=== PATIENT | female | born 1995 | race Asian ===

== ENCOUNTER → 2018-12-20 | Outpatient (REF) | payer OTHER ==
[2018-12-20 20:17] LABS: BASO % 0.4 % (0.0-1.0); EOS % 0.1 % (0.0-3.0); HEMOGLOBIN 14.3 g/dl (12.0-15.5); LYMPH # 1.1 10^3/uL (1.5-5.0); LYMPH % 12.6 % (24.0-44.0); MEAN CORPUSCULAR HEMOGLOBIN 31.2 pg (27.0-33.0); MEAN CORPUSCULAR VOLUME 91.5 fl (80.0-96.0); MONO # 0.4 10^3/uL (0.0-0.8); MONO % 4.4 % (0.0-5.0); NEUTROPHILS # 6.9 10^3/uL (1.5-8.5); NEUTROPHILS % 82.3 % (36.0-66.0); PLATELET COUNT, AUTOMATED 352 10^3/uL (150-450); RED BLOOD COUNT 4.59 10^6/uL (4.00-5.40); WHITE BLOOD COUNT 8.3 10^3/uL (4.0-10.0)
[2018-12-20 20:33] LABS: ALBUMIN 4.2 GM/DL (3.2-5.2); ALT/SGPT 17 U/L (12-78); BILIRUBIN,TOTAL 0.6 MG/DL (0.2-1.0); BLOOD UREA NITROGEN 12 MG/DL (7-18); CALCIUM LEVEL 9.4 MG/DL (8.5-10.1); CARBON DIOXIDE LEVEL 19 MEQ/L (21-32); CHLORIDE LEVEL 108 MEQ/L (98-107); CREATININE FOR GFR 0.97 MG/DL (0.55-1.30); FREE T4 0.99 NG/DL (0.76-1.46); GLOMERULAR FILTRATION RATE > 60.0 (>60); GLUCOSE, FASTING 95 MG/DL (70-100); SODIUM LEVEL 139 MEQ/L (136-145); TOTAL PROTEIN 7.9 GM/DL (6.4-8.2)
== END ==
LOC: M SFHCLERA 17:55
PROVIDERS: ATTEND Physician Assistant
DX: R00.0 Tachycardia, unspecified (principal); R06.02 Shortness of breath

== ENCOUNTER → 2018-12-20 | Outpatient (CLI) | payer OTHER ==
--- NOTE | 2018-12-20 18:43 | REP ---
CHEST, TWO VIEWS: COMPARISON: None. Two views of the chest are performed. No acute infiltrate or pneumothorax is seen. There is no pleural effusion. The heart is normal in size. The mediastinal silhouette is unremarkable. There is moderate curvature of the upper thoracic spine convex to the left and of the lower thoracic spine convex to the right. 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 IMPRESSION: Moderate thoracic scoliosis. No acute infiltrate. Electronically Signed by Jared Chavis MD 12/20/2018 08:28 P
== END ==
LOC: M LRY 17:56
PROVIDERS: ATTEND Physician Assistant
DX: R06.02 Shortness of breath (principal); M41.84 Other forms of scoliosis, thoracic region

== ENCOUNTER → 2024-10-30 | Outpatient (CLI) | payer OTHER ==
[2024-10-30 18:25] LABS: FREE T4 1.45 NG/DL (0.89-1.76)
[2024-10-30 18:31] LABS: ESTIMATED AVERAGE GLUCOSE 111.0 MG/DL (60-110)
== END ==
LOC: M WUC 14:19
PROVIDERS: ATTEND Student in an Organized Health Care Education/Training Program
DX: Z01.89 Encounter for other specified special examinations (principal)